=== PATIENT | male | born 1940 | race Hispanic/Latino ===

== ENCOUNTER 2020-02-13 21:29 | Emergency (ER) | payer MEDICARE ==
--- NOTE | 2020-02-14 01:15 | Emergency Department Report ---
ED Laceration HPI - HPI Chief Complaint: Wound/Laceration Stated Complaint: LACERATION TO LEFT FOOT Time Seen by Provider: 02/14/20 00:33 Occurred When: Today Location: Lower Extremity Severity: mild Tetanus Status: Unknown Other History: 79-year-old male was outside doing yard work when the weed eater got away from him running across issue resulting in superficial lacerations to the medial aspect of his foot ED Review of Systems ROS: Stated complaint: LACERATION TO LEFT FOOT Other details as noted in HPI Comment: All other systems reviewed and negative ED Past Medical Hx - Past Medical History Previous Medical History?: Yes Hx Hypertension: Yes Hx Diabetes: Yes - Surgical History Past Surgical History?: Yes Additional Surgical History: heart valve - Medications Home Medications: Home Medications Medication Instructions Recorded Confirmed Last Taken Type Chlorhexidine Gluconate [Hibiclens] 10 ml TP BID #240 liquid 02/14/20 Unknown Rx Mupirocin [Bactroban 2%] 15 applic TP TID #15 gm 02/14/20 Unknown Rx Laceration Physical Exam - Exam General: Vital signs noted. No distress. Alert and acting appropriately. Multiple small linear lacerations to the medial foot superficial, 1 cm 1.5 cm measuring a total of about 7 cm Laceration Location: Lower Extremity Full Body Front + Back: 1 - 5 linear superficial lacerations to the foot with some adjacent bruising Laceration Exam: Yes Normal Distal CMS, No Foreign Body, No Exposed Tendon, Vessel, or Nerve, No Tendon Injury ED Course Vital Signs 02/13/20 22:14 Temperature 97.7 F Pulse Rate 80 Respiratory 16 Rate Blood Pressure 125/75 O2 Sat by Pulse 99 Oximetry Critical care attestation.: If time is entered above; I have spent that time in minutes in the direct care of this critically ill patient, excluding procedure time. ED Disposition Clinical Impression: Accidental laceration Disposition: DC-01 TO HOME OR SELFCARE Is pt being admited?: No Does the pt Need Aspirin: No Condition: Stable Instructions: Laceration (ED) Referrals: PRIMARY CARE, [Primary Care Provider] - 3-5 Days [facility] [Provider Group] - 3-5 Days
[2020-02-14] MEDS ORDERED: DIPHtheria,PERTUSSIS(ACELL),TETANUS VACCINE/PF 0.5 ML VIAL IM ONE (01:20)
[2020-02-14] MEDS ORDERED: ACETAMINOPHEN 325 MG TAB PO ONE (01:49)
[2020-02-14 06:44] VITALS: BP 122/56
== END 2020-02-14 02:59 | disposition home or self-care (01) ==
LOC: ED 21:29
DX: S51.812A Laceration without foreign body of left forearm, initial encounter (principal); I10 Essential (primary) hypertension; E11.9 Type 2 diabetes mellitus without complications; X58.XXXA Exposure to other specified factors, initial encounter; Y93.89 Activity, other specified; Y92.096 Garden or yard of other non-institutional residence as the place of occurrence of the external cause; Y99.2 Volunteer activity
CPT/HCPCS: 82962; 90715; 96372; 99283